=== PATIENT | male | born 1990 ===

== ENCOUNTER 2017-02-06 10:40 | Emergency (ER) | payer OTHER, BC ==
[2017-02-06] MEDS ORDERED: Tetracaine 0.5% Ophth 2 ML BOTTLE ONE (10:48)
[2017-02-06 10:49] VITALS: BP 158/70; PULSE 64; RESP 16; TEMP 98.1; O2SAT 97; BMI 28.3
--- NOTE | 2017-02-06 11:37 | ED PDOC ---
Arrival/HPI - General Historian: Patient - History of Present Illness Time/Duration: 4-6 hours Symptom Onset: Sudden Symptom Course: Unchanged Quality: Burning Severity Level: 5 Activities at Onset: Other (nailing weed ) Context: Work <Zenia Talbert - Last Filed: 02/06/17 12:24> <Soto Valle - Last Filed: 02/06/17 12:53> - General Chief Complaint: ENT Problem Time Seen by Provider: 02/06/17 11:04 - History of Present Illness Narrative History of Present Illness (Text): 02/06/17 11:34 This is a 26Y M with no PMH who came to ED for R eye abrasion. He was nailing wood at work when he felt a piece of wood go into his eye. He went to an urgent care this AM, but their opthalmologist was not available so he came to [facility] ED. He reports he saw a piece of the wood sticking out of his eye and he tried to retrieve it himself and it became more embedded in his eye. He does wear contacts, but is not wearing them now. He does have some blurry vision and burning/reddness in his eye. He denies headache or vision problems in other eye. (Zenia Talbert) Past Medical History - Provider Review Nursing Documentation Reviewed: Yes - Infectious Disease Hx of Infectious Diseases: None - Past Medical History Past Medical History: No Previous - Cardiac Hx Cardiac Disorders: No - Psychiatric Hx Substance Use: No <Zenia Talbert - Last Filed: 02/06/17 12:24> Family/Social History - Physician Review Nursing Documentation Reviewed: Yes Family/Social History: No Known Family HX Smoking Status: Never Smoked Hx Alcohol Use: No Hx Substance Use: No <Zenia Talbert - Last Filed: 02/06/17 12:24> Allergies/Home Meds <Zenia Talbert - Last Filed: 02/06/17 12:24> <Soto Valle - Last Filed: 02/06/17 12:53> Allergies/Adverse Reactions: Allergies No Known Allergies Allergy (Verified 02/06/17 10:48) Review of Systems - Review of Systems Constitutional: Normal Eyes: Vision Changes (blurry vision ), Eye Pain ENT: Normal Respiratory: Normal Cardiovascular: Normal Gastrointestinal: Normal Genitourinary Male: Normal Musculoskeletal: Normal Skin: Normal Neurological: Normal Endocrine: Normal Hemo/Lymphatic: Normal Psychiatric: Normal <Zenia Talbert - Last Filed: 02/06/17 12:24> Physical Exam Temperature: Afebrile Blood Pressure: Normal Pulse: Regular Respiratory Rate: Normal Appearance: Positive for: Well-Appearing, Non-Toxic, Comfortable Pain Distress: None Mental Status: Positive for: Alert and Oriented X 3 - Systems Exam Head: Present: Atraumatic, Normocephalic Pupils: Present: PERRL Extroacular Muscles: Present: EOMI Conjunctiva: Present: Injected, Other (small piece seen on cornea on fluorescence test ) Ears: Present: Normal Mouth: Present: Moist Mucous Membranes Pharnyx: Present: Normal Neck: Present: Normal Range of Motion Respiratory/Chest: Present: Clear to Auscultation, Good Air Exchange. No: Respiratory Distress, Accessory Muscle Use Cardiovascular: Present: Regular Rate and Rhythm, Normal S1, S2. No: Murmurs Abdomen: Present: Normal Bowel Sounds. No: Tenderness, Distention, Peritoneal Signs Back: Present: Normal Inspection Upper Extremity: Present: Normal Inspection. No: Cyanosis, Edema Lower Extremity: Present: Normal Inspection. No: Edema Neurological: Present: GCS=15, CN II-XII Intact, Speech Normal Skin: Present: Warm, Dry, Normal Color. No: Rashes Psychiatric: Present: Alert, Oriented x 3, Normal Insight, Normal Concentration <Zenia Talbert - Last Filed: 02/06/17 12:24> Medical Decision Making Re-evaluation Time: 11:50 Reassessment Condition: Unchanged <Zenia Talbert - Last Filed: 02/06/17 12:24> <Soto Valle - Last Filed: 02/06/17 12:53> ED Course and Treatment: 02/06/17 11:47 Impression: This is a 26Y M with no PMH here for R eye abrasion secondary to nailing wood. [employer], Dr. Coleman was contacted and instructed to patch the eye. The patient is instructed to follow up in his office tomorrow at 10am. Plan: -- Fluorescent test -- Visual acuity -- Cyloxin eye drops -- Patch eye --Reassess Prior Visits: Notes and results from previous visits were reviewed. Discharge Instructions: Re-evaluation. Patient feels better. Discussed results and plan with patient who expresses understanding. All questions answered and there is agreement with the plan to discharge home with instructions. Patient stable for discharge. Return if symptoms persist or worsen. 02/06/17 11:50 (Zenia Talbert) Patient seen and examined with resident. Came up with treatment and disposition plan with resident. The patient is a 26 year old male who comes into the emergency department complaining of a foreign body in the right eye. Additional HPI details as noted by the resident. On physical examination a small piece of foreign body is seen on the cornea during the fluorescence test with fluoroscein uptake. Ciprofloxacin drop given. Case was discussed with Dr. Coleman (instructional material director construction trades teacher), who states to patch the eye and discharge the patient home. He states to instruct the patient to follow up with him in his office tomorrow at 10:00AM. On re-evaluation, the patient feels better and is in no acute distress. Results and plan discussed with the patient, who expresses understanding. Patient in agreement with plan to discharged home. Patient is stable for discharge. Patient was instructed to follow up with Dr. Thayer tomorrow or return if symptoms worsen or new concerning symptoms arise. (Soto Valle) - Medication Orders Current Medication Orders: Discontinued Medications Ciprofloxacin (Ciloxan 0.3% Ophth Soln) 2 drop OD ONCE STA Stop: 02/06/17 11:51 Last Admin: 02/06/17 12:04 Dose: 2 drop Tetracaine HCl (Tetracaine 0.5% Ophth Soln) Confirm Administered Dose 2 drop .ROUTE .STK-MED ONE Stop: 02/06/17 10:49 Last Admin: 02/06/17 11:55 Dose: 2 drop <Zenia Talbert - Last Filed: 02/06/17 12:24> - PA / DOUGHNUT [employer]KER / Resident Statement / has reviewed & agrees with the documentation as recorded. MD/DO has examined the patient and agrees with the treatment plan. - Scribe Statement The provider has reviewed the documentation as recorded by the Scribe <Soto Valle - Last Filed: 02/06/17 12:53> - Scribe Statement Osiel Holland Provider Scribe Attestation: All medical record entries made by the Scribe were at my direction and personally dictated by me. I have reviewed the chart and agree that the record accurately reflects my personal performance of the history, physical exam, medical decision making, and the department course for this patient. I have also personally directed, reviewed, and agree with the discharge instructions and disposition. (Soto Valle) Disposition/Present on Arrival - Present on Arrival Any Indicators Present on Arrival: No History of DVT/PE: No History of Uncontrolled Diabetes: No Urinary Catheter: No History of Decub. Ulcer: No History Surgical Site Infection Following: None - Disposition Have Diagnosis and Disposition been Completed?: Yes Disposition Time: 11:51 Patient Plan: Discharge <Zenia Talbert - Last Filed: 02/06/17 12:24> <Soto Valle - Last Filed: 02/06/17 12:53> - Disposition Diagnosis: Eye abrasion, Eye foreign body Disposition: HOME/ ROUTINE Condition: GOOD Discharge Instructions (ExitCare): Eye Foreign Body (ED) Print Language: SCOTTISH Additional Instructions: Herve Jeet, thank you for letting us take care of you today. Your provider was Dr. Talbert. You were treated for R eye abrasion. The emergency medical care you received today was directed at your acute symptoms. If you were prescribed any medication, please fill it and take as directed. It may take several days for your symptoms to resolve. Return to the Emergency Department if your symptoms worsen, do not improve, or if you have any other problems. Please contact your doctor or call one of the physicians/clinics you have been referred to that are listed on the Patient Visit Information form that is included in your discharge packet. Bring any paperwork you were given at discharge with you along with any medications you are taking to your follow up visit. Our treatment cannot replace ongoing medical care by a primary care provider (PCP) outside of the emergency department. Thank you for allowing the [facility] team to be part of your care today. If you had an X-Ray or CT scan: A Radiologist will review the ED reading if any change in treatment is needed we will contact you. If you had a blood, urine, or wound culture: It will take several days for the results, if any change in treatment is needed we will contact you. If you had an STI test: It will take 48 hours for the results. Please call after 1 week if you have not heard back. 1. Follow up with Dr. Coleman ([employer]) at 10am tomorrow 02/07/17. 2. Maintain eye patch 3. Refrain from wearing contacts in the R eye 4. Use the antibiotics drops as prescribed 5. Return to the emergency department if problems persist or worsen. Prescriptions: Ciprofloxacin 0.3% [Ciloxan 0.3% Ophth SOLN] 2 drop OD Q3H #1 bottle Referrals: Steven Coleman MD [Staff Provider] - Follow up with primary PCP,NO [Primary Care Provider] - Follow up with primary Forms: WORK NOTE
[2017-02-06] MEDS ORDERED: Ciprofloxacin 0.3% OPTH SOLN OD STA (11:50)
== END 2017-02-06 12:05 | disposition home or self-care (01) ==
LOC: ED 10:40
DX: T15.01XA Foreign body in cornea, right eye, initial encounter (principal); W22.8XXA Striking against or struck by other objects, initial encounter; Y93.89 Activity, other specified; Y92.69 Other specified industrial and construction area as the place of occurrence of the external cause; Y99.0 Civilian activity done for income or pay